=== PATIENT | male | born 1940 | race Caucasian/White ===

== ENCOUNTER 2023-11-18 04:47 | Emergency (ER) | payer OTHER ==
[~2023-11-18] VITALS: Ht 167.6 cm; Wt 72.6 kg
[2023-11-18 05:20] LABS: BASOPHILS # (AUTO) 0.05 K/uL (0.00-0.20); BASOPHILS % (AUTO) 0.5 % (0.0-5.0); EOSINOPHILS # (AUTO) 0.25 K/uL (0.00-0.70); EOSINOPHILS % (AUTO) 2.6 % (0.0-8.0); HEMATOCRIT 43.6 % (42-54); IMMATURE GRANULOCYTE ABSOLUTE 0.04 K/uL (0-1); LYMPHOCYTES # (AUTO) 1.2 K/uL (1.0-4.8); MEAN CORPUSCULAR HEMOGLOBIN 31.5 pg (27.0-33.0); MEAN CORPUSCULAR HGB CONC 33.3 g/dL (32.0-36.0); MEAN CORPUSCULAR VOLUME 94.8 fL (79-99); MONOCYTES # (AUTO) 0.7 K/uL (0.1-1.0); MONOCYTES % (AUTO) 7.6 % (3.0-13.0); NEUTROPHILS # (AUTO) 7.4 K/uL (1.8-7.7); NEUTROPHILS % (AUTO) 76.9 % (40.0-77.0); PLATELET COUNT (AUTO) 196 K/uL (130-400); WHITE BLOOD COUNT (AUTO) 9.7 K/uL (4.8-10.8)
[2023-11-18 05:24] LABS: APPEARANCE,URINE CLEAR (CLEAR); BILIRUBIN,URINE NEGATIVE (NEGATIVE); COLOR,URINE LIGHT-YELLOW (YELLOW); GLUCOSE, URINE (UA) NEGATIVE (NEGATIVE); KETONES,URINE NEGATIVE (NEGATIVE); LEUKOCYTE ESTERASE ,URINE NEGATIVE Leu/uL (NEGATIVE); NITRATE,URINE NEGATIVE (NEGATIVE); OCCULT BLOOD,URINE NEGATIVE (NEGATIVE); PROTEIN,URINE NEGATIVE (NEGATIVE); UROBILINOGEN,URINE 0.2 mg/dL (0.2-1.0)
[2023-11-18 05:30] LABS: ADD UA MICROSCOPIC NO
[2023-11-18] MEDS: LACTATED RINGERS 1000ML 1,000 ML IV ONE (05:34)
[2023-11-18] MEDS: ondanSETRON 4MG INJ IVP ONE (05:35)
[2023-11-18] MEDS: morPHINE 4 MG SYG IVP ONE (05:35)
[2023-11-18 06:16] LABS: ALBUMIN 3.6 g/dL (3.5-5.0); BILIRUBIN,TOTAL 1.2 mg/dL (0.2-1.0); CREATININE 1.2 mg/dL (0.5-1.3); POTASSIUM 4.2 mmol/L (3.5-5.1); TOTAL PROTEIN, SERUM 6.9 g/dL (6.0-8.3)
[2023-11-18] MEDS: MAG/ALUM/SIMETH 30 ML UDCUP PO ONE (08:24)
[2023-11-18] MEDS: 0.9% NACL 500ML IV.SOLN 500 ML IV SCH (09:02)
[2023-11-18 09:53] VITALS: BP 170/79; PULSE 72; RESP 14; TEMP 98.1; O2SAT 98
[2023-11-18] MEDS ORDERED: SIME125C81 PO (10:12)
[2023-11-18] MEDS ORDERED: BISM525O10 PO (10:12)
== END 2023-11-18 10:14 | disposition home or self-care (01) ==
LOC: EDH 04:47
DX: R10.13 Epigastric pain (principal); R74.8 Abnormal levels of other serum enzymes; E78.00 Pure hypercholesterolemia, unspecified; I10 Essential (primary) hypertension; Z88.0 Allergy status to penicillin
CPT/HCPCS: 99284; 74176; 96374; 76705; 71045; 96361; 96375; 82550; 84484; 80053; 83690; 85025; 81003; 36415; 93005; J7040; J7120; J2405; J2270